=== PATIENT | male | born 1980 | race Caucasian/White ===

== ENCOUNTER 2017-03-21 14:02 | Emergency (ER) | payer SELFPAY ==
[~2017-03-21 14:02] MED LIST: COZA50TA PO; IBUP-232 PO; TRAM50 PO
[2017-03-21 14:08] VITALS: BP 141/88; PULSE 105; RESP 20; TEMP 99.9; O2SAT 94
[2017-03-21] MEDS ORDERED: methylPREDNISolone SOD SUCC 125 MG/2 ML VIAL IVP ONE (14:15)
[2017-03-21] MEDS: RESP: ALBUTEROL 2.5 MG/IPRATROPIUM 0.5 MG NEB (SCH) INH ×2 (14:25→14:26)
[2017-03-21 14:38] LABS: AUTOMATED NEUTROPHIL # 11.1 TH/MM3 (1.8-7.7); BASOPHIL # 0.1 TH/MM3 (0-0.2); BASOPHIL % 0.4 % (0.0-2.0); EOSINOPHIL # 0.1 TH/MM3 (0-0.4); EOSINOPHIL % 0.7 % (0.0-4.0); HEMATOCRIT 46.8 % (39.0-51.0); LYMPH % 9.2 % (9.0-44.0); LYMPHOCYTE # 1.2 TH/MM3 (1.0-4.8); MEAN CELL VOLUME 98.3 FL (80.0-100.0); MEAN CORPUSCULAR HGB CONC 33.5 % (32.0-36.0); MONO % 7.4 % (0.0-8.0); NEUT % 82.3 % (16.0-70.0); PLATELET COUNT 236 TH/MM3 (150-450); RED BLOOD COUNT 4.76 MIL/MM3 (4.50-5.90); RED CELL DISTRIBUTION WIDTH 13.2 % (11.6-17.2); WHITE BLOOD COUNT 13.5 TH/MM3 (4.0-11.0)
[2017-03-21 14:39] LABS: HEMO FLAGS DIFF FINAL
[2017-03-21 14:44] LABS: CHLORIDE 95 MEQ/L (98-107); SODIUM (NA) 132 MEQ/L (136-145)
[2017-03-21 14:48] LABS: ANION GAP 9 MEQ/L (5-15); BICARBONATE 28.3 MEQ/L (21.0-32.0); BLOOD UREA NITROGEN 7 MG/DL (7-18)
[2017-03-21 14:51] LABS: ALT (GPT) 25 U/L (12-78); AST (GOT) 30 U/L (15-37); GLOMERULAR FILTRATION RATE 85 ML/MIN (>89)
[2017-03-21 14:52] LABS: TOTAL BILIRUBIN ADULT 0.7 MG/DL (0.2-1.0)
[2017-03-21 14:54] LABS: ALKALINE PHOSPHATASE 137 U/L (45-117)
[2017-03-21 15:02] VITALS: BP 132/86; PULSE 102; RESP 20; O2SAT 88
[2017-03-21] MEDS ORDERED: cefTRIAXone INJ 1,000 MG in SODIUM CHLORIDE 0.9% INJ 100 ML IV ONE (15:30)
[2017-03-21] MEDS ORDERED: AZITHROMYCIN INJ 500 MG in SODIUM CHLOR 0.9% 250 ML INJ 250 ML IV ONE (15:30)
--- NOTE | 2017-03-21 15:31 | RADHPO ---
EXAM DATE/TIME: 03/21/2017 14:21 [place] COMPARISON: No previous studies available for comparison. INDICATIONS : Chest pain and cough MEDICAL HISTORY : Smoker SURGICAL HISTORY : None. ENCOUNTER: Initial ACUITY: 3 days PAIN SCORE: 3/10 LOCATION: Bilateral chest FINDINGS: PA and lateral views of the chest demonstrate the lungs to be symmetrically aerated without evidence of mass, infiltrate or effusion. The cardiomediastinal contours are unremarkable. Osseous structure s are intact. CONCLUSION: No acute cardiopulmonary process. Trey Waterman MD on March 21, 2017 at 15:26 Board Certified Radiologist. This report was verified electronically.
--- NOTE | 2017-03-21 15:41 | PD ---
HPI Chief Complaint: Respiratory Symptoms Time Seen by Provider: 14:07 Travel History International Travel<30 days: No Contact w/Intl Traveler<30days: No Traveled to known affect area: No History of Present Illness HPI Patient is a 37-year-old male comes in complaining of cough and shortness of breath for the past 2 weeks. He says he is felt like he's had a fever at home, but has not taken his temperature. He says the last time he was sick was 4 years ago, and he required hospitalization at that point for low oxygen saturations. He says he has albuterol at home, but he does not think the nebulizers working. He is currently on Suboxone, but denies concurrent IV drug abuse. He denies any chest pain. He says he has a slight headache when coughing. PFSH Past Medical History Diminished Hearing: No Hypertension: Yes Musculoskeletal: Yes (BACK PROBLEMS DUE TO TRAUMA) Social History Alcohol Use: Yes Tobacco Use: Yes (1PPD) Substance Use: No (DENIES) Allergies-Medications (Allergen,Severity, Reaction): Coded Allergies: Codeine (Verified Allergy, Severe, NAUSEA, 03/21/17) Reported Meds & Prescriptions Reported Meds & Active Scripts Active Zithromax Z-Franc (Azithromycin) 250 Mg Dspk 250 Mg PO DIRECTED 500 MG (2 tabs) day 1, then 1 tab days 2-5. Proair Hfa 8.5 GM Inh (Albuterol Sulfate) 90 Mcg/Act Aer 2 Puff INH Q4-6H PRN 108 mcg/actuation Review of Systems Except as stated in HPI: all other systems reviewed are Neg General / Constitutional: Positive: Fever Eyes: No: Blurred Vision HENT: Positive: Headaches Cardiovascular: No: Chest Pain or Discomfort Respiratory: Positive: Cough, Shortness of Breath Gastrointestinal: No: Nausea, Vomiting Musculoskeletal: No: Myalgias, Edema, Pain Skin: No Rash, No Change in Pigmentation Neurologic: No: Weakness, Dizziness Physical Exam Narrative GENERAL: Awake and alert, in no acute distress. SKIN: Focused skin assessment warm/dry. HEAD: Atraumatic. Normocephalic. EYES: Pupils equal and round. No scleral icterus. ENT: No nasal bleeding or discharge. Mucous membranes pink and moist. NECK: Trachea midline. No JVD. CARDIOVASCULAR: Regular rate and rhythm. No murmur appreciated. RESPIRATORY: No accessory muscle use. Coarse breath sounds throughout both lungs. Breath sounds equal bilaterally. GASTROINTESTINAL: Abdomen soft, non-tender, nondistended. MUSCULOSKELETAL: No obvious deformities. No clubbing. No cyanosis. No edema. NEUROLOGICAL: Awake and alert. No obvious cranial nerve deficits. Motor grossly within normal limits. Normal speech. PSYCHIATRIC: Appropriate mood and affect; insight and judgment normal. Data Data Last Documented VS Vital Signs Date Time Temp Pulse Resp B/P Pulse Ox O2 Delivery O2 Flow Rate FiO2 03/21/17 15:59 120 22 141/91 93 Nasal Cannula 3 03/21/17 14:08 99.9 Orders Complete Blood Count With Diff (03/21/17 14:13) Comprehensive Metabolic Panel (03/21/17 14:13) Chest, Pa & Lat (03/21/17 ) Methylprednisolone So Succ Inj (Solumedr (03/21/17 14:15) Albuterol-Ipratropium Neb (Duoneb Neb) (03/21/17 14:15) Iv Access Insert/Monitor (03/21/17 14:13) Ceftriaxone Inj (Rocephin Inj) (03/21/17 15:30) Azithromycin Inj (Zithromax Inj) (03/21/17 15:30) Admit Order (Ed Use Only) (03/21/17 ) Labs Laboratory Tests Test 03/21/17 14:30 White Blood Count 13.5 TH/MM3 Red Blood Count 4.76 MIL/MM3 Hemoglobin 15.7 GM/DL Hematocrit 46.8 % Mean Corpuscular Volume 98.3 FL Mean Corpuscular Hemoglobin 33.0 PG Mean Corpuscular Hemoglobin 33.5 % Concent Red Cell Distribution Width 13.2 % Platelet Count 236 TH/MM3 Mean Platelet Volume 7.0 FL Neutrophils (%) (Auto) 82.3 % Lymphocytes (%) (Auto) 9.2 % Monocytes (%) (Auto) 7.4 % Eosinophils (%) (Auto) 0.7 % Basophils (%) (Auto) 0.4 % Neutrophils # (Auto) 11.1 TH/MM3 Lymphocytes # (Auto) 1.2 TH/MM3 Monocytes # (Auto) 1.0 TH/MM3 Eosinophils # (Auto) 0.1 TH/MM3 Basophils # (Auto) 0.1 TH/MM3 CBC Comment DIFF FINAL Differential Comment Sodium Level 132 MEQ/L Potassium Level 4.0 MEQ/L Chloride Level 95 MEQ/L Carbon Dioxide Level 28.3 MEQ/L Anion Gap 9 MEQ/L Blood Urea Nitrogen 7 MG/DL Creatinine 1.00 MG/DL Estimat Glomerular Filtration 85 ML/MIN Rate Random Glucose 133 MG/DL Calcium Level 9.1 MG/DL Total Bilirubin 0.7 MG/DL Aspartate Amino Transf 30 U/L (AST/SGOT) Alanine Aminotransferase 25 U/L (ALT/SGPT) Alkaline Phosphatase 137 U/L Total Protein 8.6 GM/DL Albumin 3.3 GM/DL [facility] Medical Decision Making Medical Screen Exam Complete: Yes Emergency Medical Condition: Yes Medical Record Reviewed: Yes Differential Diagnosis Asthma exacerbation versus bronchitis versus pneumonia versus URI Narrative Course Patient is a 37-year-old male comes in complaining of cough, fever, shortness of breath for 2 weeks. Exam shows coarse breath sounds in both lungs. Patient' s oxygen saturation is in the low 90s on room air. IV established, labs sent. Labs show a white blood cell count of 13.5. Chest x-ray shows no acute abnormalities. Patient given 3 duo nebs as well as Solu-Medrol. Given Rocephin and azithromycin. O2 sats dropped into the 80s on room air, he was started on nasal cannula. Patient was advised he needed admission to the hospital. At first he agreed, then he said he needed to leave. I had a long discussion with the patient regarding his oxygen requirement. I explained that he was not getting enough oxygen in his blood and this could cause his heart to stop. Advised he could become very sick and . He is alert and oriented 4, and he voices understanding of these risks. Patient has elected to sign out AMA. Both myself and his nurse tried to convince him to stay, but he was adamant about leaving. I explained to him in layman terms about what lack of oxygen can due to his heart and how he could because of this. I stressed to him that he really needed to stay, but he still refused. He says he will come back. Patient given prescriptions for albuterol and azithromycin, but encouraged to return to the emergency department as soon as possible. AMA: The risks of leaving against medical advice without further evaluation treatment were discussed with the patient. These risks include cardiac dysfunction, cardiac dysrhythmia, possible heart attack, possible stroke or . The patient indicated understanding of these risks and appeared to have the capacity to make this decision. Diagnosis Primary Impression: Asthma Qualified Code: J45.901 - Asthma with acute exacerbation, unspecified asthma severity Additional Impression: Pneumonia Qualified Code: J18.9 - Pneumonia due to infectious organism, unspecified laterality, unspecified part of lung Patient Instructions: Asthma (ED), Bacterial Pneumonia (ED), General Instructions Scripts Azithromycin (Zithromax Z-Franc)250 Mg Bphm125 Mg PO DIRECTED #1 DSPK Ref 0 500 MG (2 tabs) day 1, then 1 tab days 2-5. Prov:Julissa Rose MD 03/21/17 Albuterol 8.5 GM Inh (Proair Hfa 8.5 GM Inh)90 Mcg/Act Aer2 Puff INH Q4-6H PRN ( SHORTNESS OF BREATH) #1 INHALER Ref 0 108 mcg/actuation Prov:Julissa Rose MD 03/21/17 Disposition: 07 AGAINST MEDICAL ADVICE Condition: Stable Julissa Rose MD Mar 21, 2017 15:41
[2017-03-21 15:59] VITALS: BP 141/91; PULSE 120; RESP 22; O2SAT 93
[2017-03-21] MEDS ORDERED: ALBUAER3 INH (16:01)
[2017-03-21] MEDS ORDERED: ZITHTAB PO (16:01)
== END 2017-03-21 17:44 | disposition left against medical advice (07) ==
LOC: PHED 14:02
DX: J45.901 Unspecified asthma with (acute) exacerbation (principal); J18.9 Pneumonia, unspecified organism; R51 Headache; I10 Essential (primary) hypertension; F17.200 Nicotine dependence, unspecified, uncomplicated; Z87.39 Personal history of other diseases of the musculoskeletal system and connective tissue; Z53.29 Procedure and treatment not carried out because of patient's decision for other reasons
CPT/HCPCS: 71020; 80053; 85025; 94640; 94664; 96365; 96367; 96375; 99284; J0456; J0696; J2930; J7050

== ENCOUNTER 2017-08-07 16:54 | Emergency (ER) | payer SELFPAY ==
[~2017-08-07] VITALS: Ht 165.1 cm; Wt 84.0 kg
[~2017-08-07 16:54] MED LIST changes: +ALBUAER3 INH; -COZA50TA PO; -IBUP-232 PO; -TRAM50 PO; +ZITHTAB PO
[2017-08-07 16:59] VITALS: BP 134/91; PULSE 104; RESP 16; TEMP 99; O2SAT 96
[2017-08-07] MEDS ORDERED: SUBO2MIS SL (17:22)
[2017-08-07] MEDS ORDERED: BP MED (17:22)
[2017-08-07] MEDS ORDERED: LIDOCAINE HCL 1% 50 ML VIAL INFIL ONE (17:45)
--- NOTE | 2017-08-07 17:56 | PD ---
HPI . Laceration to chin Chief Complaint: Laceration/Skin Injury Time Seen by Provider: 17:17 Travel History International Travel<30 days: No Contact w/Intl Traveler<30days: No Traveled to known affect area: No History of Present Illness HPI 37-year-old male patient presents emergency department for evaluation of laceration he sustained to his chin when he was working on his vehicle this afternoon. Patient states he is working on his car and the stallworth of the car fell on the back of his head pushing his head down in the engine area. Patient' s skull is atraumatic and there are no signs hematoma or laceration. Patient denies losing consciousness. Patient is neurologically intact. Patient states he is up-to-date on his tetanus, it was updated in 2016. Patient denies any neck pain. There is no midline spinal tenderness to palpation. Patient fully major medical history is hypertension and he takes an antihypertensive daily for but no other medication. PFSH Past Medical History Diminished Hearing: No Hypertension: Yes Musculoskeletal: Yes (BACK PROBLEMS DUE TO TRAUMA) Past Surgical History Surgical History: No Previous Surgery Social History Alcohol Use: Yes Tobacco Use: Yes (DAILY) Substance Use: No (DENIES) Allergies-Medications (Allergen,Severity, Reaction): Coded Allergies: codeine (Unverified Allergy, Severe, NAUSEA, 08/07/17) Reported Meds & Prescriptions Reported Meds & Active Scripts Active Reported [Bp Med] Suboxone Sublingual Film (Buprenorphine-Naloxone Sublingual Film) 2-0.5 Mg Film 1 Film SL Unique ID number required: Review of Systems Except as stated in HPI: all other systems reviewed are Neg Physical Exam Narrative GENERAL: Well-nourished, well-developed 37-year-old male patient in no acute distress. Nontoxic appearing. SKIN: 3 cm U-shaped laceration to chin. HEAD: Normocephalic. Atraumatic. EYES: No scleral icterus. No injection or drainage. NEUROLOGICAL: Awake and alert. Cranial nerves II through XII intact. Motor and sensory grossly within normal limits. Five out of 5 muscle strength in all muscle groups. Normal speech. NECK: Supple, trachea midline. No JVD or lymphadenopathy. CARDIOVASCULAR: Regular rate and rhythm without murmurs, gallops, or rubs. RESPIRATORY: Breath sounds equal bilaterally. No accessory muscle use. GASTROINTESTINAL: Abdomen soft, non-tender, nondistended. MUSCULOSKELETAL: No cyanosis, or edema. BACK: Nontender without obvious deformity. No CVA tenderness. Data Data Last Documented VS Vital Signs Date Time Temp Pulse Resp B/P (MAP) Pulse Ox O2 Delivery O2 Flow Rate FiO2 08/07/17 16:59 99.0 104 16 134/91 (105) 96 Orders Orders Lidocaine 1% Inj (50 Ml) (Xylocaine 1% I (08/07/17 17:45) MDM Medical Decision Making Medical Screen Exam Complete: Yes Emergency Medical Condition: Yes Differential Diagnosis Differential diagnosis as include but not limited to laceration, cellulitis, contusion Narrative Course 37-year-old male patient uses emergency department for evaluation of a laceration he sustained to his chin when working on his vehicle as afternoon. Laceration was repaired. Please see my procedural narrative. Tetanus was updated last year so there is no need to updated again. Based on patient's symptoms, clinical presentation, vital sign review and physical exam it is not necessary to admit the patient to the hospital or keep the patient in the emergency department for further evaluation. Patient will be discharged home with instructions to keep the wound clean and dry and return in 5 days to get sutures removed. Procedures Procedure Narrative LACERATION LOCATION: Chin LENGTH: 2 cm area in length of the 3 cm laceration that required sutures, the other 1 centimeter on the end of the laceration was superficial NUMBER OF STITCHES/AWILDA: 3 X 4. 0 Prolene REPAIR: The area of the laceration was prepped with Betadine and sterilely draped. The laceration was infiltrated with Lidocaine. The wound was copiously irrigated and explored without evidence of foreign body, tendon injury or neurovascular injury. The wound was closed using 3 simple interrupted sutures using 4. 0 Prolene. This was a single layer repair. A sterile dressing was applied. The patient was advised to keep the dressing clean and dry. Patient tolerated the procedure well. Diagnosis Primary Impression: Laceration of face Qualified Codes: S01.81XA - Laceration without foreign body of other part of head, initial encounter Referrals: Primary Care Physician Patient Instructions: General Instructions, Laceration (DC) Additional Instructions: Please return to emergency department with any signs or symptoms of infection such as redness, warmth, increasing pain and fevers. Follow up with your primary care provider. Get sutures removed in 5 days. Keep wound clean and dry. Apply antibiotic ointment and clean cover dressing May use [id number] Motrin or Tylenol as needed for pain Disposition: 01 DISCHARGE HOME Condition: Stable Julissa Nobles Aug 07, 2017 17:56
== END 2017-08-07 18:29 | disposition home or self-care (01) ==
LOC: PHED 16:54 → PHEFT 18:29
DX: S01.81XA Laceration without foreign body of other part of head, initial encounter (principal); W20.8XXA Other cause of strike by thrown, projected or falling object, initial encounter; Y93.89 Activity, other specified
CPT/HCPCS: 12011